=== PATIENT | female | born 1970 | race Caucasian/White ===

== ENCOUNTER 2017-08-15 08:52 | Day surgery (SDC) | payer MEDICARE, OTHER ==
[2017-08-15 09:45] LABS: INTERNATIONAL RATION (INR) 0.93; PARTIAL THROMBOPLASTIN TIME 27.5 SEC (23.5-35.8)
--- NOTE | 2017-08-15 11:19 | RADIOLOGY REPORT (SQ) ---
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 FLUOROSCOPY TIME: 36 seconds 1 digital radiographic image saved to PACS. TECHNIQUE: Fluoroscopic guided lumbar puncture. LIMITATIONS: None. PROCEDURE: After written consent and assessment were obtained, the patient was brought into the fluo roscopy room and placed prone on the table. The patient's lower back was prepped in a sterile fashio n and an entry site was selected under live fluoroscopic guidance. The entry site was anesthetized wi th 3 mL of 1% lidocaine. A 22 gauge needle was advanced through the skin and into the thecal sac at t he right paracentral L1-2 level. After approximately 8 ml was drained, the needle was removed and a sterile bandage was placed of the site. Specimens were sent to the lab for testing. A fluoroscopic spot image was saved to PACS confirming level access. FINDINGS: Clear cerebrospinal fluid, opening pressure 22 cm of water. Closing pressure 14 cm of ness er. CSF fluid analysis is pending IMPRESSION: Lumbar puncture under fluoroscopy. No immediate complication. COMMENT: Patient medication list reviewed: Yes- Quality ID# [id number]:Eligible professional attests to doc umenting in the medical record they obtained, updated, or reviewed the patient's current medications. . Quality ID 145: Final reports for procedures using fluoroscopy that document radiation exposure narendra cesar, or exposure time and number of fluorographic images (if radiation exposure indices are not avail able) TECHNICAL DOCUMENTATION: JOB ID: [id number] [email or web address]- All Rights Reserved Reading location - IP/workstation name: [facility]
--- NOTE | 2017-08-15 11:19 | RADIOLOGY REPORT (SQ) ---
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 FLUOROSCOPY TIME: 36 seconds 1 digital radiographic image saved to PACS. TECHNIQUE: Fluoroscopic guided lumbar puncture. LIMITATIONS: None. PROCEDURE: After written consent and assessment were obtained, the patient was brought into the fluo roscopy room and placed prone on the table. The patient's lower back was prepped in a sterile fashio n and an entry site was selected under live fluoroscopic guidance. The entry site was anesthetized wi th 3 mL of 1% lidocaine. A 22 gauge needle was advanced through the skin and into the thecal sac at t he right paracentral L1-2 level. After approximately 8 ml was drained, the needle was removed and a sterile bandage was placed of the site. Specimens were sent to the lab for testing. A fluoroscopic spot image was saved to PACS confirming level access. FINDINGS: Clear cerebrospinal fluid, opening pressure 22 cm of water. Closing pressure 14 cm of ness er. CSF fluid analysis is pending IMPRESSION: Lumbar puncture under fluoroscopy. No immediate complication. COMMENT: Patient medication list reviewed: Yes- Quality ID# [id number]:Eligible professional attests to doc umenting in the medical record they obtained, updated, or reviewed the patient's current medications. . Quality ID 145: Final reports for procedures using fluoroscopy that document radiation exposure narendra cesar, or exposure time and number of fluorographic images (if radiation exposure indices are not avail able) TECHNICAL DOCUMENTATION: JOB ID: [id number] [employer]- All Rights Reserved Reading location - IP/workstation name: [email or web address]
[2017-08-15 11:22] LABS: GLUCOSE,CSF 58 mg/dL (40-70); PROTEIN,CSF 37 mg/dL (12-60)
[2017-08-15 11:47] LABS: APPEARANCE ALL TUBES CLEAR; COLOR ALL TUBES COLORLESS; CSF TUBE NUMBER 3
[2017-08-15 11:48] LABS: RED BLOOD CELL,CSF 0 /uL (0-10)
[2017-08-15 11:49] LABS: WHITE BLOOD CELL,CSF 2 /uL (0-5)
[2017-08-15 13:11] VITALS: BP 113/75
[2017-08-16 16:40] LABS: ALBUMIN CSF 15 mg/dL (11-48); ALBUMIN SERUM 4.6 g/dL (3.5-5.5); CSF IGG INDEX 0.5 (0.0-0.7); IGG SYNTHESIS RATE CSF -2.7 mg/day (-9.9 TO +3); IGG/ALBUMIN RATIO CSF 0.07 (0.00-0.25); IMMUNOGLOBULIN G CSF 1.1 mg/dL (0.0-8.6); IMMUNOGLOBULIN G SERUM 735 mg/dL (700-1600)
[2017-08-17 12:00] LABS: CSF/SERUM ALBUMIN INDEX 3 (0-8)
== END 2017-08-15 12:50 | disposition home or self-care (01) ==
LOC: RAD 08:52
PROVIDERS: ATTEND Specialist
DX: G35 Multiple sclerosis (principal); Z87.891 Personal history of nicotine dependence; Z88.5 Allergy status to narcotic agent; Z79.01 Long term (current) use of anticoagulants
CPT/HCPCS: 36415; 62270; 77003; 82784; 82945; 83916; 84157; 85610; 85730; 87070; 87205; 89050